=== PATIENT | female | born 1975 ===

== ENCOUNTER 2025-09-27 11:56 | Outpatient (CLI) | payer OTHER | END 2025-09-27 11:57 | disposition home or self-care (01) | LOC: ULT 11:56 | PROVIDERS: ATTEND Family Medicine | DX: E03.9 Hypothyroidism, unspecified (principal); F39 Unspecified mood [affective] disorder; J45.909 Unspecified asthma, uncomplicated; M54.51 Vertebrogenic low back pain; D50.9 Iron deficiency anemia, unspecified; E55.9 Vitamin D deficiency, unspecified | CPT/HCPCS: 76536 ==